=== PATIENT | female | born 1990 | race Caucasian/White ===

== ENCOUNTER 2016-12-14 19:58 | Emergency (ER) | payer BC ==
[~2016-12-14] VITALS: Ht 160 cm; Wt 51.3 kg
[2016-12-14 20:10] VITALS: BP 107/67
--- NOTE | 2016-12-14 20:20 | Emergency Room Report ---
History of Present Illness General Chief Complaint: Medical Clearance Source: Patient, Caregiver Present Illness HPI The patient is a 26 old female presenting with sober softlines supervisor for alcohol intoxication. The supervisor labor gang states that he brought the patient for medical clearance. The patient admits to drinking vodka in excess approximately 3 hours prior to arrival. She denies any reason for this. She states that she is recovering from alcohol abuse in the sober living facility. She denies using any drugs. She denies any other symptoms including nausea, vomiting, chest pain, shortness of breath, abdominal pain Allergies: Coded Allergies: No Known Allergies (Unverified , 12/14/16) Patient History Past Medical History: see triage record Pertinent Family History: none Last Menstrual Period: a month ago Now: No Reviewed Nursing Documentation: PMH: Agreed, PSxH: Agreed Nursing Documentation-PMH Past Medical History: No Stated History Review of Systems All Other Systems: negative except mentioned in HPI Physical Exam Vital Signs Date Time Temp Pulse Resp B/P (MAP) Pulse Ox O2 Delivery O2 Flow Rate FiO2 12/14/16 19:59 98.4 92 18 107/67 98 Room Air Sp02 EP Interpretation: reviewed, normal General Appearance: no apparent distress, alert, GCS 15, non-toxic, lethargic Head: normocephalic, atraumatic Eyes: bilateral eye normal inspection, bilateral eye PERRL ENT: hearing grossly normal, normal pharynx, no angioedema, normal voice Neck: full range of motion, supple/symm/no masses Respiratory: chest non-tender, lungs clear, normal breath sounds, speaking full sentences Cardiovascular #1: regular rate, rhythm, no edema Gastrointestinal: normal bowel sounds, non tender, soft, non-distended, no guarding, no rebound Genitourinary: normal inspection, no CVA tenderness Musculoskeletal: back normal, gait/station normal, normal range of motion, non- tender Neurologic: alert, responsive, sensory intact Psychiatric: judgement/insight normal, memory normal, mood/affect normal, no suicidal/homicidal ideation Skin: normal color, no rash, warm/dry, well hydrated Lymphatic: no adenopathy Medical Decision Making PA Attestation Dr. Baxter is my supervising physician. Patient management was discussed with my supervising physician Diagnostic Impression: Primary Impression: Alcohol intoxication Qualified Codes: F10.920 - Alcohol use, unspecified with intoxication, uncomplicated ER Course The patient is a 26 old female presenting for presumed alcohol intoxication DDx considered but not limited to: acute alcohol intoxication, drug overdose, psychosis, among others Physical exam: Vitals are within normal limits. No apparent distress. Patient is lethargic. Head is normocephalic atraumatic. Pupils are equally round and reactive to light. + nystagmus Patient is alert and follows commands well Lungs are clear to auscultation bilaterally. No abnormal tenderness. Abdomen is soft. Otherwise exam is unremarkable The patient is given time to rest in the emergency department. Upon reevaluation, patient is A&Ox3. Walks with stable gait. Admits to alcohol use only. The patient be discharged home and given ER precautions. Patient was given advice on alcohol addiction Last Vital Signs Date Time Temp Pulse Resp B/P (MAP) Pulse Ox O2 Delivery O2 Flow Rate FiO2 12/14/16 19:59 98.4 92 18 107/67 98 Room Air Status: improved Disposition: HOME, SELF-CARE Condition: Improved DERICK MA Dec 14, 2016 20:20
[2016-12-14 21:15] VITALS: BP 107/67
== END 2016-12-14 21:15 | disposition home or self-care (01) ==
LOC: EMR 20:22
DX: F10.129 Alcohol abuse with intoxication, unspecified (principal)
CPT/HCPCS: 99282